=== PATIENT | male | born 1990 | race Caucasian/White ===

== ENCOUNTER 2021-10-20 15:39 | Emergency (ER) | payer MEDICAID, SELFPAY ==
[2021-10-20 15:54] VITALS: BP 110/68; BP 114/63; PULSE 65; PULSE 88; RESP 14; O2SAT 94; O2SAT 97; BMI 25.0
--- NOTE | 2021-10-20 16:04 | ED.OVERDOSE ---
HPI - Overdose General Chief Complaint: Overdose Stated Complaint: UNRESPOSIVE S/P 3 BAGS OF HEROIN,NO NARCAN Time Seen by Provider: 10/20/21 16:01 Source: patient and EMS Mode of arrival: EMS Limitations: no limitations History of Present Illness HPI Narrative: Patient comes to the emergency room after being found unresponsive. According to EMS, patient used 3 bags of heroin, no Narcan given. Since EMS arrived to wake up the patient, he has been alert and oriented x3, saturating 94% and above. Patient is adamant that he did not use drugs. Patient states that he was taking a nap, states that he was up all night working. Related Data Allergies Allergy/AdvReac Type Severity Reaction Status Date / Time No Known Allergies Allergy Unverified 02/22/20 19:21 [No Known Allergies*] Review of Systems Review of Systems: Constitutional : No Weight loss, No Fever, No Chills, No Night Sweats, No Fatigue, No Malaise ENT/Mouth : No Hearing loss, No Ear Pain, No Nasal Congestion, No Sinus Pain, No Hoarseness, No sore throat, No Rhinorrhea, No Swallowing Difficulty Eyes: No Eye Pain, No Swelling, No Redness, No Foreign Body, No Discharge, No Vision Changes Cardiovascular : No Chest Pain, No SOB, No Dyspnea on Exertion, No Orthopnea, No Edema, No Palpitations Respiratory : No Cough, No Sputum, No Wheezing, No Smoke Exposure, No Dyspnea Gastrointestinal : No Nausea, No Vomiting, No Diarrhea, No Constipation, No abdominal Pain, No Hematochezia, No Melena Genitourinary : no irregular bleeding, No Dysuria, No Urinary Frequency, No Hematuria, No Urinary Incontinence, No Urgency, No Flank Pain, No Urinary Flow Changes, No Hesitancy Musculoskeletal : No joint pain, No Myalgias, No Joint Swelling Skin : No Skin Lesions, No rash Neuro : No Weakness, No Numbness, No Paresthesias, No Loss of Consciousness, No Dizziness, No Headache Psych : No Anxiety/Panic, No Depression, No SI/HI/AH/VH, No Social Issues, Heme/Lymph: No Bruising, No Bleeding,No Lymphadenopathy Endocrine : No Polyuria, No Polydipsia, No Temperature Intolerance Physical Exam Vital Signs: Vital Signs: Last Vital Signs Pulse 65 10/20/21 15:54 Resp 14 05/16/22 15:54 BP 114/63 10/20/21 15:54 Pulse Ox 94 10/20/21 15:54 BMI result Body Mass Index 25.0 Const: Other: Appearance: Alert. Oriented X3. No acute distress. Eyes: Pupils equal, round and reactive to light. ENT: Pharynx normal. Neck: Normal inspection. Neck supple. No lymph nodes noted. No crepitus CVS: Normal heart rate and rhythm. Pulses normal. Normal S1 and S2 Respiratory: No respiratory distress. Breath sounds normal. No Wheezing. No rales Abdomen: Soft and nontender. No rigidity. No distention. Skin: Skin warm and dry. Normal skin color. Normal skin turgor. Extremities: No lower extremity edema. No Lacerations. No Rash Neuro: Oriented X 3. No motor deficit. No sensory deficit. Moving all extremities. No slurred speech. CN 2 through 12 grossly intact Psych: calm, cooperative, normal affect Course Course Course Narrative: Patient's physical exam is normal, patient is awake, alert and oriented x3. Patient declined CARE/SUDE , as he states that he did not overdose. Patient denies suicidal or homicidal ideation. Patient declined Narcan for home Discharge Plan Discharge Clinical Impression: Substance abuse Patient Disposition: Home, Self-Care Instructions: Polysubstance Abuse (ED)
== END 2021-10-20 16:25 | disposition home or self-care (01) ==
LOC: HO.ED 16:20
PROVIDERS: Emergency Provider Emergency Medicine
DX: T40.1X1A Poisoning by heroin, accidental (unintentional), initial encounter (principal); F11.19 Opioid abuse with unspecified opioid-induced disorder; Y92.9 Unspecified place or not applicable
CPT/HCPCS: 99282

== ENCOUNTER 2021-12-14 22:45 | Emergency (ER) | payer MEDICAID, SELFPAY ==
[2021-12-14 23:15] VITALS: BP 130/82; PULSE 88; RESP 16; TEMP 36.6; O2SAT 99; BMI 22.5
--- NOTE | 2021-12-15 00:41 | ED.ALCOHOL ---
HPI - Alcohol General Chief Complaint: ETOH/Substance Use Stated Complaint: withdrawal symptoms Time Seen by Provider: 12/15/21 00:15 Source: patient Mode of arrival: ambulatory Limitations: no limitations History of Present Illness HPI narrative: has bed at [facility] at 9am complaint: alcohol withdrawal and desires rehab Last drink: Hours (ago) (several ) Chronic alcohol use: Yes Previous visits for alcohol intoxication: Yes Recent trauma: No Associated symptoms: nausea and tremors Treatments prior to arrival: none Related Data Allergies Allergy/AdvReac Type Severity Reaction Status Date / Time No Known Allergies Allergy Verified 12/14/21 23:20 [No Known Allergies*] Review of Systems Review of Systems: Constitutional : No Fever, No Chills ENT/Mouth : No sore throat, No Rhinorrhea Eyes: No Eye Pain, No Swelling, No Redness Cardiovascular : No Chest Pain, No SOB Respiratory : No Cough, No Sputum, No Wheezing Gastrointestinal : pos Nausea, pos Vomiting, No Diarrhea, No abdominal Pain Genitourinary : No Dysuria, No Urinary Frequency, No Hematuria, Musculoskeletal : No joint pain, No Myalgias, No Joint Swelling Skin : No Skin Lesions, No rash Neuro : No Weakness, No Numbness, No Dizziness, No Headache Psych : pos Anxiety/Panic, No Depression All other systems reviewed and are negative [facility] Past Medical History Attestation statement: The following information was validated with the patient. Medical History Alcohol abuse Alcohol withdrawal Opiate abuse, continuous Social History Social History (Updated 12/15/21 @ 00:42 by Jennifer Osuna DO) Alcohol intake: current Patient Tobacco Use Status: Current everyday Tobacco user Substance Use Type: Heroin Physical Exam ED Vital Signs: Vital Signs - 24 hr 12/14/21 23:15 Temperature 97.8 F Pulse Rate 88 Respiratory Rate 16 Blood Pressure 130/82 Pulse Oximetry 99 Oxygen Delivery Method Room Air BMI result Body Mass Index 22.5 Appearance: Alert. Oriented X3. Anxious acute distress. Eyes: Pupils equal, round and reactive to light. ENT: Pharynx normal. Neck: Normal inspection. Neck supple. CVS: Normal heart rate and rhythm. Pulses normal. Respiratory: No respiratory distress. Breath sounds normal. Abdomen: Soft and nontender. Skin: Skin warm and dry. Normal skin color. Normal skin turgor. old track mora in both arms noted - no signs of infection Extremities: No lower extremity edema. No calf ttp Neuro: Oriented X 3. No motor deficit. No sensory deficit. CN2-12 intact, slight tremor Course Course Course Narrative: Physician observation started at 1250am. Patient placed in physician observation because the patient needed more time for symptom improvement and for his bed to open up. At the time observation was started the patient's vitals were stable, patient is alert and oriented but slightly anxious, Neuro: nonfocal, CV RRR, Lungs clear MDM - Alcohol MDM Narrative Medical decision making narrative: 31 yo male hx of alcohol abuse, opiate use disorder has bed at [facility] 9am he is feeling anxious and jittery requesting medications at this time. He is refusing an IV and does not want labs done. Will obtain COVID swab, provide ODT and IM valium. Patient again is refusing labs - he has stable VS. Discharge Plan Discharge Clinical Impression: Opiate abuse, continuous Alcohol withdrawal syndrome Qualifiers: Complication of substance-induced condition: uncomplicated Qualified Code(s): F10.930 - Alcohol use, unspecified with withdrawal, uncomplicated Patient Disposition: Still a Patient Instructions: Abuse of Alcohol (ED), Opioid Use Disorder (ED) Additional Instructions: return to ED for any worsening symptoms or concerns please go to detox as planned
[2021-12-15] MEDS: Ondansetron ODT 4 MG TAB.RAPDIS TRANSLINGU (00:48)
[2021-12-15] MEDS: diazePAM 10 MG/2 ML CARTRIDGE 5 MG IM (00:48)
[2021-12-15] MEDS: LORazepam 1 MG TABLET PO (01:58)
[2021-12-15 02:04] LABS: COVID-19 Test Negative (Negative); IDNOW Serial# 55D5AD1C
--- NOTE | 2021-12-15 02:09 | PC.NURSE ---
Pt Medicated per Aug. [place] and drink given pt tolerated well. Pt on bedside monitor.
--- NOTE | 2021-12-15 02:46 | PC.NURSE ---
pt is sleeping at this time no sign of distress at this time. Will continue to monitor.
[2021-12-15 02:47] VITALS: BP 109/61; PULSE 68; RESP 18; O2SAT 96
[2021-12-15 04:51] VITALS: BP 112/62; PULSE 71; RESP 18; O2SAT 98
[2021-12-15 07:03] VITALS: BP 136/72; PULSE 84; RESP 18; TEMP 36.3; O2SAT 98
[2021-12-15] MEDS: LORazepam 1 MG TABLET 2 MG PO (08:13)
--- NOTE | 2021-12-15 09:18 | MHC.RECOVSUP ---
Recovery Support note: Patient is a 31 year old [place] speaking male who presented to [facility] due to symptoms of withdrawal. This contract technical writer confirmed with [facility] that patient is scheduled to arrive at 945 this morning. Patient is still interested in treatment. Patient information faxed to [facility]. Discussed case with RN and ED provider. Plan for patient to be transported to [facility] via [facility].
== END 2021-12-15 09:27 | disposition other institution (70) ==
PROVIDERS: Emergency Provider Emergency Medicine
DX: F10.239 Alcohol dependence with withdrawal, unspecified (principal); F11.19 Opioid abuse with unspecified opioid-induced disorder; F41.1 Generalized anxiety disorder; F43.0 Acute stress reaction; R11.0 Nausea; Z20.822 Contact with and (suspected) exposure to COVID-19; Z79.899 Other long term (current) drug therapy
CPT/HCPCS: 87635; 96372; 99284; J3360